=== PATIENT | female | born 1965 | race Two or more races ===

== ENCOUNTER 2017-11-06 09:13 | Outpatient (CLI) | payer OTHER ==
[~2017-11-06 09:13] MED LIST: AMOX1TAB12 PO; KETO10TA2 PO; ULTRAM50 MG PO
== END 2017-11-06 09:22 | disposition home or self-care (01) ==
LOC: MAMO-SONO 09:13
DX: Z12.31 Encounter for screening mammogram for malignant neoplasm of breast (principal); N60.11 Diffuse cystic mastopathy of right breast

== ENCOUNTER 2021-02-08 08:50 | Outpatient (CLI) | payer OTHER | END 2021-02-08 09:12 | disposition home or self-care (01) | LOC: LAB 08:50 | PROVIDERS: ATTEND Obstetrics & Gynecology | DX: N60.11 Diffuse cystic mastopathy of right breast (principal); E55.9 Vitamin D deficiency, unspecified; I10 Essential (primary) hypertension ==

== ENCOUNTER 2021-02-08 08:53 | Outpatient (CLI) | payer OTHER | END 2021-02-08 10:00 | disposition home or self-care (01) | LOC: MAMO-SONO 08:53 | PROVIDERS: ATTEND Obstetrics & Gynecology | DX: N60.11 Diffuse cystic mastopathy of right breast (principal); Z12.31 Encounter for screening mammogram for malignant neoplasm of breast ==

== ENCOUNTER → 2022-09-06 | Outpatient (CLI) | payer OTHER | END | disposition home or self-care (01) | LOC: MAMO-SONO 13:49 | PROVIDERS: ATTEND Obstetrics & Gynecology | DX: Z01.810 Encounter for preprocedural cardiovascular examination (principal); I10 Essential (primary) hypertension; E03.9 Hypothyroidism, unspecified; E78.9 Disorder of lipoprotein metabolism, unspecified; N60.11 Diffuse cystic mastopathy of right breast ==

== ENCOUNTER 2025-03-25 13:50 | Outpatient (CLI) | payer OTHER | END 2025-03-25 14:04 | disposition home or self-care (01) | LOC: MRI 13:50 | PROVIDERS: ATTEND Ophthalmology | DX: R51.9 Headache, unspecified (principal); G43.909 Migraine, unspecified, not intractable, without status migrainosus | CPT/HCPCS: 70553 ==